=== PATIENT | female | born 1955 | race Caucasian/White ===

== ENCOUNTER 2018-06-02 11:19 | Day surgery (SDC) | payer OTHER ==
[2018-05-31 13:23] VITALS: BMI 21.9
[~2018-06-02 11:19] MED LIST: LACTATED RINGERS 1,000 ML IV SCH; LIDOCAINE 1% 20 ML VIAL (10MG/ML) FOR IV START INTRADERMA PRN
[2018-06-02 11:50] VITALS: RESP 16; TEMP 97.7
[2018-06-02 11:56] LABS: Glucose,Whole Blood 110 mg/dL (75-99)
[2018-06-02] MEDS ORDERED: PROPOFOL 10 MG/ML 20 ML VIAL IV ONE (12:31)
[2018-06-02] MEDS ORDERED: LIDOCAINE 1% INJ 10MG/ML (20 ML MDV) ONE (12:31)
--- NOTE | 2018-06-02 13:17 | P.PCN ---
Date of Procedure: 06/02/18 Description of Procedure: BRIEF HISTORY: 62-year-old female who presents for outpatient colonoscopy due to change in bowel habit, diarrhea and unintentional weight loss. The patient reports that over the past few months she has had frequent loose stool with urgency. She also noted occasional bright red blood with wiping. Patient has been tried on treatment with Imodium, Lomotil, and probiotics with no improvement in her symptoms. In addition antibiotic therapy did not help. Last colonoscopy was 02/17/2017 with no polyps found. Labs and stool studies were performed on 04/01/2018. PROCEDURE PERFORMED: Colonoscopy with biopsy. PREOPERATIVE DIAGNOSIS: Change in bowel habits, diarrhea. ESTIMATED BLOOD LOSS: Minimal. IV sedation per Anesthesia. PROCEDURE: After informed consent was obtained, the patient, was brought into the endoscopy unit. IV sedation was administered by Anesthesia under continuous monitoring. Digital rectal examination was normal. Initially the Olympus CF-190 flexible video colonoscope was then inserted in the rectum, gradually advanced into the cecum without any difficulty. Careful examination was performed as the scope was gradually being withdrawn. Ileocecal valve and the appendiceal orifice were visualized and appeared normal. Attempts were made to intubate the terminal ileum however these were unsuccessful due to positioning and looping of the endoscope. Prep was excellent. Mucosa of the cecum, ascending colon, transverse colon, descending colon, sigmoid colon, and rectum appeared normal. Random biopsies were taken of the right colon, transverse colon and left colon to rule out microscopic colitis. Rosenbaum diverticulosis was noted. Mild internal hemorrhoids were seen. Retroflexion was performed in the rectum and no lesions were seen. The patient tolerated the procedure well. IMPRESSION: Normal-appearing colon from rectum to cecum, with random biopsies of the right colon, transverse colon and left colon given history of loose stool. Pandiverticulosis. Mild internal hemorrhoids. RECOMMENDATIONS: Findings of this examination were discussed with the patient and her . Await pathology from biopsies. Follow up with the gastroenterology clinic as previously scheduled. Continue symptomatic treatment with anti-spasmodic therapy and antidiarrheal therapy.
[2018-06-02 13:31] VITALS: BP 122/64; PULSE 78
== END 2018-06-02 13:50 | disposition home or self-care (01) ==
LOC: ORWHC2ENDO 11:19
PROVIDERS: ATTEND Internal Medicine
DX: K52.831 Collagenous colitis (principal); K57.30 Diverticulosis of large intestine without perforation or abscess without bleeding; K64.8 Other hemorrhoids; Z79.899 Other long term (current) drug therapy; F17.200 Nicotine dependence, unspecified, uncomplicated
CPT/HCPCS: 45380; J2001; J2704; 88305